=== PATIENT | female | born 1945 | race Caucasian/White ===

== ENCOUNTER 2019-12-19 13:58 | Observation (INO) | payer OTHER ==
[~2019-12-19] VITALS: Ht 170.2 cm; Wt 68.0 kg
[~2019-12-19 13:58] MED LIST: ASPI81EC97 PO; CAR30 PO; DULO60EC PO; INSU3SUS11 SC; INSU3SUS11 SUBQ; INV1I IV; LORA-476 PO; METF1000 PO; MIC5 PO; MIRABULK PO; PHEN-329 PO; PHEN1SUP7 RC; QUET25TA PO; SIMV40TA1 PO; [UNRECOGNIZED DRUG - CODE] PO; [UNRECOGNIZED DRUG - CODE] RC
[2019-12-19 14:30] VITALS: BP 114/43
--- NOTE | 2019-12-19 14:30 | NUR ---
74 y/o F biba from [facility] for gtube placement. Pt had GT removed 12/08/19 per family request d/t pt taking medications and meals orally. Pt no longer taking medications or meals orally. Requesting GT placement. A&O x1. Vital Signs Stable. HOB elevated, bed in lowest postion, bed rail up x2. Waiting for ERMD to evaluate pt.
--- NOTE | 2019-12-19 15:00 | NUR ---
Family at bedside. Pt on monitoring analyst. Vital Signs Stable. Will continue to monitor.
[2019-12-19 15:08] LABS: BASOPHILS % (AUTO) 0.5 % (0.0-2.0); EOSINOPHILS # (AUTO) 0.2 K/uL (0-0.4); EOSINOPHILS % (AUTO) 2.8 % (0.0-4.0); HEMATOCRIT 37.3 % (36-48); HEMOGLOBIN 11.6 g/dL (12.0-16.0); LYMPHOCYTES # (AUTO) 2.4 K/uL (2.5-16.5); LYMPHOCYTES % (AUTO) 30.8 % (20.5-51.1); MEAN CORPUSCULAR HEMOGLOBIN 27 pg (27-31); MEAN CORPUSCULAR HGB CONC 31 g/dL (33-37); MEAN CORPUSCULAR VOLUME 86.3 fL (80-94); MONOCYTES # (AUTO) 0.5 K/uL (0.8-1.0); NEUTROPHILS # (AUTO) 4.5 K/uL (1.8-7.7); NEUTROPHILS % (AUTO) 58.9 % (42.2-75.2); PLATELET COUNT (AUTO) 258 K/uL (140-450); RED BLOOD CELL COUNT(AUTO) 4.32 MIL/uL (4.20-5.40); RED CELL DISTRIBUTION WIDTH 15.6 % (11.6-13.7); WHITE BLOOD COUNT (AUTO) 7.7 K/uL (4.8-10.8)
[2019-12-19 15:21] LABS: ALBUMIN 3.1 g/dL (3.4-5.0); ANION GAP 15.5 (8-16); ASPARTATE AMINOTRANSFERASE 13 U/L (15-37); CARBON DIOXIDE 23.7 mmol/L (21-32); CHLORIDE 106 mmol/L (98-107); GLUCOSE 174 mg/dL (74-106); POTASSIUM 4.2 mmol/L (3.5-5.1); SODIUM SERUM 141 mmol/L (136-145); TOTAL BILIRUBIN 0.3 mg/dL (0.0-1.0); UREA NITROGEN, BLOOD 21 mg/dL (7-18)
--- NOTE | 2019-12-19 15:30 | NUR ---
Family updated on plan of care. All questions addressed.
[2019-12-19 15:35] LABS: PROTHROMBIN TIME 10.3 secs (10.8-13.4)
[2019-12-19] MEDS: DEXT 5% / NACL 0.45% 1,000 ML IV SCH (16:12)
[2019-12-19] MEDS ORDERED: ALBUTEROL 0.083% 2.5 MG/3 ML NEBU INH PRN (16:15)
[2019-12-19] MEDS ORDERED: ACETAMINOPHEN 325 MG TAB PO PRN (16:15)
[2019-12-19] MEDS ORDERED: ONDANSETRON 4 MG/2 ML VIAL IVP PRN (16:15)
--- NOTE | 2019-12-19 16:35 | NUR ---
Transfer of care and report given to JOSE Garcia
--- NOTE | 2019-12-19 16:35 | NUR ---
Patient will be admitted to [facility]. Admited to [facility]. Will go to room 122A. Belongings list completed. Report to JOSE Garcia.
--- NOTE | 2019-12-19 16:35 | NUR ---
RECEIVED PT FROM ER. PT IS COMING WITH CAREGIVER. PT IS BEDBOUND, AND PER CAREGIVER, IS CONFUSED BECAUSE SHE HAS A HX OF ALZHEIMER'S DEMENTIA. SKIN IS INTACT. ON ROOM AIR. IV SITE R HAND 24 G SALINE LOCK. PT'S PRIMARY LANGUAGE IS SLOVENIAN. SHELF FILLER IS LATRICIA, HER SON, . PT IS SEEN AND EVALUATED BY DR ALFRED. PT'S CAREGIVER DOES NOT KNOW IF/WHEN PT HAS HAD FLU OR PNA VACCINES, AND DOES NOT KNOW THE DATE OF HER LAST BM.
[2019-12-19 16:40] VITALS: BP 114/90
--- NOTE | 2019-12-19 17:21 | NUR ---
PT'S CAREGIVER INFORMED ME THAT PT IS DIABETIC. BG AT THIS TIME IS 172. DR ALFRED MADE AWARE THAT PT IS DIABETIC.
--- NOTE | 2019-12-19 17:22 | NUR ---
OBTAINED PHONE CONSENT FROM PT'S SON LATRICIA FOR G-TUBE PLACEMENT, VERIFIED WITH JOSE HUMPHREYS.
--- NOTE | 2019-12-19 17:54 | NUR ---
CONFIRMED WITH PT'S CAREGIVER THAT PT IS NOT ALLERGIC TO TYLENOL. PHARMACY MADE AWARE
--- NOTE | 2019-12-19 18:05 | NUR ---
PAGED ON-CALL MD DR. DELEON TO GET ORDERS FOR IV FLUIDS. PT CURRENTLY HAS D5 1/2 NS ORDERED, BUT THERE IS NO DRIP RATE. WILL ALSO ASK ABOUT ORDERING ACHS BG CHECKS AND INSULIN COVERAGE, SINCE PT HAS HX OF DM, AND PER CAREGIVER, RECEIVED INSULIN COVERAGE AT HER RESIDENCE. AWAITING CALL BACK FROM DR DELEON. Addendum: 12/19/19 at 1818 by Radha Mercado RN GOT CALL BACK FROM BERNADETTE RICHARD D5 1/2 NS 75 ML/HR, AND ACHS BG CHECKS WITH SLIDING SCALE INSULIN LISPRO
[2019-12-19] MEDS ORDERED: DEXTROSE 50% 50 ML SYR IVP PRN (18:15)
[2019-12-19] MEDS ORDERED: INSULIN LISPRO SLIDING SCALE 100 UNITS/ML VIAL SUBQ PRN (18:15)
--- NOTE | 2019-12-19 18:30 | NUR ---
IVF INFUSING PER MD ORDER. PT FELL ASLEEP, APPEARS TO BE COMFORTABLE IN BED.
--- NOTE | 2019-12-19 19:06 | NUR ---
RECEIVED A CALL FROM BERNADETTE KELLY TO DC THE ASPIRIN AND KEEP PT NPO FOR G-TUBE PLACEMENT TOMORROW MORNING.
--- NOTE | 2019-12-19 19:25 | NUR ---
ENDORSED PT TO SOFTWARE TOOLS BUILD ENGINEER NURSE IN STABLE CONDITION.
--- NOTE | 2019-12-19 19:30 | NUR ---
RECEIVED FROM AM RN IN BED SLEEPING. PER AM RN BEEN AWAKE ALL DAY LONG. NO RESTLESSNESS NOTED. WILL CONTINUE CARE FOR THE NIGHT FROM AM RN. NEEDS WILL BE ANTICIPATED AND WILL BE MET. TOTAL CARE RT HX. DEMENTIA AND ALZHEIMERS. WILL BE TURNED Q 2H.
--- NOTE | 2019-12-19 21:00 | NUR ---
PT. TURNED TO SIDES BT SENIOR SCRUM MASTER WITH PILLOW SUPPORT TO PRESSURE AREAS. NEEDS WILL BE ANTICIPATED AND WILL BE MET. TOTAL CARE. GARBLED WORDS AND UN ABLE TO UNDERSTAND RT SPEAKS BULGARIAN. WENT BACK TO SLEEP AFTER PM CARE.
[2019-12-19] MEDS: BLOOD GLUCOSE MONITORING 1 DEV DEV FS SCH (21:03)
[2019-12-19 21:07] VITALS: BP 169/70
[2019-12-19 21:10] VITALS: BP 167/77
[2019-12-19] MEDS: QUEtiapine FUMARATE 25 MG TAB PO SCH (21:13)
[2019-12-19] MEDS: DILTIAZEM 30 MG TAB PO SCH (21:13)
--- NOTE | 2019-12-19 21:30 | NUR ---
PT SEEN AND ASSESSED. PT IS IN NO APPARENT RESPIRATORY DISTRESS AT THIS TIME; HR 71, RR 18, SPO2 OF 99% ON ROOM AIR, AND A CLEAR BREATH SOUNDS. NO INDICATION FOR HHN PRN TX AT THIS TIME. WILL CONTINUE TO MONITOR PT.
[2019-12-19 23:44] VITALS: BP 147/57
--- NOTE | 2019-12-19 23:46 | NUR ---
PT, ATTENDED BY CNAS. TURNED TO OTHER SIDE WITH PILLOW SUPPORT TO PRESSURE AREAS. BED ALARM ON. NO RESTLESSNESS. IVF SITE INTACT AND NO INFILTRATION NOTED.
[2019-12-20] VITALS: BP 144/57
--- NOTE | 2019-12-20 03:15 | NUR ---
PT. SLEEPING AT THIS TIME. NEEDS ANTICIPATED AND WILL BE MET. TOTAL CARE RT GENERALIZED WEAKNESS. BED ALARM ON. BED BOUND PER BASELINE. NEW IVF SITE TO RIGHT FOREARM #22 . GOOD BLOOD RETURN.
[2019-12-20] MEDS: DILTIAZEM 30 MG TAB PO SCH (05:00)
[2019-12-20] MEDS: DEXT 5% / NACL 0.45% 1,000 ML IV SCH (05:06)
[2019-12-20] MEDS: BLOOD GLUCOSE MONITORING 1 DEV DEV FS SCH ×3 (05:09→17:21)
--- NOTE | 2019-12-20 05:56 | NUR ---
AM PERSONAL HYGIENE RENDERED BY CNAS. CHLORHEXIDINE WIPES DONE FOR PRE-OP . SEQUENTIALS BILATERALLY IN PLACE . NEEDS ANTICIPATED AND MET. ISOLATION PRECAUTION FOR HX. OF URINE ECOLI AND ESBL . SURGICAL CHECKLIST DONE. PT. WAKES UP WHEN MOVED OR TOUCHED. MUMBLES. TOTAL CARE RT GENERALIZED WEAKNESS. BEDBOUND MOBILITY BASELINE.
[2019-12-20] MEDS ORDERED: MIDAZOLAM 2 MG/2 ML VIAL ONE (07:02)
[2019-12-20] MEDS ORDERED: fentaNYL 0.05 MG/ML VIAL ONE (07:02)
[2019-12-20 07:04] LABS: BASOPHILS % (AUTO) 0.4 % (0.0-2.0); EOSINOPHILS # (AUTO) 0.2 K/uL (0-0.4); HEMOGLOBIN 11.2 g/dL (12.0-16.0); LYMPHOCYTES # (AUTO) 2.5 K/uL (2.5-16.5); LYMPHOCYTES % (AUTO) 30.4 % (20.5-51.1); MEAN CORPUSCULAR HEMOGLOBIN 27 pg (27-31); MEAN CORPUSCULAR HGB CONC 32 g/dL (33-37); MEAN CORPUSCULAR VOLUME 85.2 fL (80-94); MONOCYTES # (AUTO) 0.6 K/uL (0.8-1.0); NEUTROPHILS # (AUTO) 4.9 K/uL (1.8-7.7); NEUTROPHILS % (AUTO) 59.2 % (42.2-75.2); PLATELET COUNT (AUTO) 268 K/uL (140-450); RED BLOOD CELL COUNT(AUTO) 4.11 MIL/uL (4.20-5.40); RED CELL DISTRIBUTION WIDTH 15.4 % (11.6-13.7); WHITE BLOOD COUNT (AUTO) 8.4 K/uL (4.8-10.8)
--- NOTE | 2019-12-20 07:05 | NUR ---
RECEIVED REPORT FROM STARS ANALYTICAL LEAD NURSE AT BEDSIDE FOR CONTINUITY OF CARE. PATIENT SLEEPING COMFORTABLY IN BED, NO RESTLESSNESS OR SOB NOTED ON ROOM AIR. IV SITES INTACT, ASYMPTOMATIC, AND RIGHT HAND IV INFUSING IVF WELL, R FA IV SALINE LOCKED. PATIENT SCDS, UPDATED BOARD. PATIENT WILL BE GOING TO GTUBE PLACEMENT PROCEDURE AT 0730. SAFETY AND ISOLATION PRECAUTIONS IN PLACE, BED IN LOWEST POSITION WITH BED ALARM AND BRAKES ON, CALL LIGHT WITHIN REACH, WILL CONTINUE TO MONITOR PATIENT.
--- NOTE | 2019-12-20 07:20 | NUR ---
TELEPHONE CONSENT WITH PATIENT'S SON LATRICIA OBTAINED VIA TELEPHONE WITH RN WILFREDO WITNESS. OR CHECKLIST UPDATED.
--- NOTE | 2019-12-20 07:25 | NUR ---
PATIENT WHEELED OFF FLOOR TO GTUBE PLACEMENT PROCEDURE WITH 2 OR NURSES AT HER SIDE. WILL WAIT FOR HER RETURN.
[2019-12-20 07:36] LABS: ALBUMIN 3.2 g/dL (3.4-5.0); ANION GAP 16.1 (8-16); ASPARTATE AMINOTRANSFERASE 13 U/L (15-37); CARBON DIOXIDE 24.5 mmol/L (21-32); CHLORIDE 107 mmol/L (98-107); CREATININE 0.9 mg/dL (0.6-1.3); GLUCOSE 101 mg/dL (74-106); MAGNESIUM 1.7 mg/dL (1.8-2.4); PHOSPHORUS 3.2 mg/dL (2.5-4.9); POTASSIUM 3.6 mmol/L (3.5-5.1); SODIUM SERUM 144 mmol/L (136-145); TOTAL BILIRUBIN 0.4 mg/dL (0.0-1.0); UREA NITROGEN, BLOOD 18 mg/dL (7-18)
[2019-12-20 07:40] VITALS: BP 189/79
[2019-12-20] MEDS: fentaNYL 0.05 MG/ML VIAL IVP ONE ×2 (07:46→08:52)
[2019-12-20] MEDS: MIDAZOLAM 2 MG/2 ML VIAL IVP ONE ×2 (07:46→08:52)
[2019-12-20] MEDS ORDERED: ceFAZolin 1,000 MG VIAL ONE (07:56)
--- NOTE | 2019-12-20 08:20 | NUR ---
PATIENT WHEELED BACK ONTO FLOOR AFTER GTUBE PLACEMENT. BP 190/100, WILL CALL DR. ALFRED TO UPDATE HIM ON PATIENT'S STATUS AND TO RECEIVE ORDERS.
--- NOTE | 2019-12-20 08:38 | NUR ---
PATIENT HAS BEEN SCREENED AND CATEGORIZED HIGH NUTRITION RISK. PATIENT WILL BE SEEN WITHIN 1-2 DAYS OF ADMISSION. 12/20/19 - 12/21/19 CONNOR AMADO MBA, RD
[2019-12-20] MEDS ORDERED: DILTIAZEM 25 MG/5 ML VIAL IVP PRN (08:40)
--- NOTE | 2019-12-20 08:40 | NUR ---
PAGED DR. ALFRED. DR HALEY HOSPICE DIRECTOR, CALLED BACK, UPDATED HIM ABOUT PATIENT'S ELEVATED BP. NEW ORDER IN FOR PRN CARDIZEM 10MG Q2HR FOR SYSTOLIC BP >180. ORDER NOTED AND WILL BE CARRIED OUT.
[2019-12-20] MEDS ORDERED: SIMVASTATIN 40 MG TAB PO SCH (09:00)
[2019-12-20] MEDS ORDERED: DULoxetine 30 MG CAPDR PO SCH (09:00)
[2019-12-20] MEDS ORDERED: ECOTRIN 81 MG TABEC PO SCH (09:00)
--- NOTE | 2019-12-20 09:04 | NUR ---
PRN CARDIZEM GIVEN FOR ELEVATED BP PER DR. HALEY'S ORDERS. PATIENT TOLERATED IT. WILL CONTINUE TO MONITOR PATIENT AND ASSESS BP.
--- NOTE | 2019-12-20 09:52 | NUR ---
12/20/19 RD INITIAL ASSESSMENT COMPLETED PLEASE REFER TO NUTRITION ASSESSMENT UNDER CARE ACTIVITY FOR ESTIMATED NUTRITIONAL NEEDS. RD RECOMMENDATIONS: 1. RECOMMEND JEVITY 1.2@50MLS/HR; SUFFICIENT TO MEET 90% ESTIMATED ENERGY NEEDS AND 100% ESTIMATED PROTEIN NEEDS. 2. START TF @30MLS/HR AND ADVANCE, TOLERATED, BY 10MLS/HR Q8HRS TO REACH GOAL RATE OF 50MLS/HR. 3. F/U 2-3 DAYS; HIGH RISK CONNOR AMADO MBA, RD
--- NOTE | 2019-12-20 10:20 | NUR ---
PATIENT VOIDED. PATIENT CLEANED. PATIENT REPOSITIONED FOR COMFORT AND TO OFFLOAD PRESSURE AREAS. CALL LIGHT WITHIN REACH, WILL CONTINUE TO MONITOR PATIENT.
--- NOTE | 2019-12-20 10:35 | NUR ---
GTUBE AUSCULTATED FOR PLACEMENT, 0 ML OF RESIDUAL NOTED. TUBE FEEDING STARTED. PATIENT TOLERATING IT. FAMILY AT BEDSIDE. WILL CONTINUE TO MONITOR PATIENT.
--- NOTE | 2019-12-20 11:02 | NUR ---
Patient's son Tunde called. Updated him on patient's condition, he verbalized understanding. Tunde is aware of patient's possible discharge. Will continue to monitor patient and update family on patient's condition.
--- NOTE | 2019-12-20 11:50 | NUR ---
CHECKED PATIENT'S TUBE FEEDING, 45 ML OF RESIDUAL NOTED. PER DR. BREWER'S ORDERS, WILL RESUME TUBE FEEDING AT CURRENT RATE. PATIENT'S CAREGIVER BRODERICK AT BEDSIDE. WILL CONTINUE TO MONITOR PATIENT.
[2019-12-20 12:10] VITALS: BP 139/70
[2019-12-20] MEDS ORDERED: ACETAMINOPHEN 325 MG TAB GT PRN (12:55)
[2019-12-20] MEDS ORDERED: CRUSHER, PILL MC ONE (12:56)
[2019-12-20] MEDS: QUEtiapine FUMARATE 25 MG TAB PO SCH (12:58)
[2019-12-20] MEDS ORDERED: ATORVASTATIN 20 MG TAB GT SCH (13:00)
[2019-12-20] MEDS ORDERED: DILTIAZEM 30 MG TAB GT SCH (13:00)
--- NOTE | 2019-12-20 13:16 | NUR ---
ORDERED MEDICATIONS GIVEN VIA GTUBE, PATIENT TOLERATING IT WELL. PATIENT VOIDED, CLEANED AND REPOSITIONED FOR COMFORT AND TO OFFLOAD PRESSURE AREAS. CAREGIVER BRODERICK AT BEDSIDE. SAFETY AND ISOLATION PRECAUTION IN PLACE, CALL LIGHT WITHIN REACH, WILL CONTINUE TO MONITOR PATIENT.
--- NOTE | 2019-12-20 13:20 | NUR ---
PATIENT'S SON LATRICIA AT BEDSIDE, IN TO SEE PATIENT. UPDATED HIM ON PATIENT'S CONDITION AND STATUS AND POSSIBLE DISCHARGE TODAY. HE VERBALIZED UNDERSTANDING. EDUCATED HIM ABOUT ISOLATION PROTOCOL, HE VERBALIZED UNDERSTANDING. WILL CONTINUE TO MONITOR PATIENT.
--- NOTE | 2019-12-20 13:45 | NUR ---
Transportation: Received transport authorization from Sissy ([facility] [phone]) auth # [id number]. [facility] transport arranged with [facility] for 1800 pick-up.
--- NOTE | 2019-12-20 14:00 | NUR ---
@1000 HRS: CONTACTED [facility] (TEL#[phone]), SPOKE WITH CHARGE NURSE UNIQUE REGARDING PT'S DISCHARGE ORDER BACK TO THEIR FACILITY AFTER 6PM TONIGHT, PER UNIQUE, PT IS GOING TO ROOM 209-1. ARON-RN ASSIGNED MADE AWARE.
--- NOTE | 2019-12-20 14:41 | NUR ---
ORDERED MEDICATIONS GIVEN VIA GTUBE, PATIENT TOLERATING IT WELL. 10 ML OF RESIDUAL NOTED. CAREGIVER BRODERICK AT BEDSIDE. SAFETY AND ISOLATION PRECAUTION IN PLACE, CALL LIGHT WITHIN REACH, WILL CONTINUE TO MONITOR PATIENT.
[2019-12-20 16:00] VITALS: BP 159/67
--- NOTE | 2019-12-20 16:48 | NUR ---
PATIENT'S SON OLGA LIDIA IN TO SEE PATIENT. UPDATED HIM ON PLAN OF CARE AND IMPENDING DISCHARGE, HE VERBALIZED UNDERSTANDING. HE REQUEST TO BE CALLED ONCE PATIENT HAS BEEN TRANSFERRED. PHONE #: [phone].
--- NOTE | 2019-12-20 17:50 | NUR ---
REPORT GIVEN TO JOSE ALCOCER, AT [facility]. GTUBE CLAMPED, IV REMOVED, IV CANNULAS INTACT, MINIMAL BLEEDING NOTED. BLOOD SUGAR 222, COVERAGE GIVEN. PATIENT TOLERATED IT. ID BANDS CUT. [facility] HERE TO PICK PATIENT UP TO TRANSPORT HER TO [facility]. PATIENT UNABLE TO SIGN PAPERWORK. TRANSFER PAPERWORK GIVEN TO [facility] STAFF AND DISCHARGE/TRANSFER INFORMATION GIVEN TO PATIENT'S CAREGIVER.
--- NOTE | 2019-12-20 18:10 | NUR ---
PATIENT WHEELED OFF FLOOR WITH [facility]. PATIENT WILL BE GOING TO [facility], ROOM 209. PATIENT IN STABLE CONDITION. PATIENT'S CAREGIVER BRODERICK TOOK ALL OF PATIENT'S BELONGINGS WITH HER.
--- NOTE | 2019-12-20 18:15 | NUR ---
CALLED PATIENT'S SON BRET TO INFORM THEM ABOUT PATIENT'S TRANSFER, NO ANSWER. LEFT VOICEMAIL AND NUMBER FOR THEM TO CALL BACK.
[2019-12-20] MEDS ORDERED: QUEtiapine FUMARATE 25 MG TAB GT SCH (21:00)
[2019-12-21] MEDS ORDERED: ATORVASTATIN 20 MG TAB PO SCH (09:00)
[2019-12-21] MEDS ORDERED: ATORVASTATIN 20 MG TAB GT SCH (09:00)
== END 2019-12-20 18:15 ==
LOC: MED 13:58 → MTU 16:12 → INTOOBSV 16:12 → MTU 12-20 01:45
PROVIDERS: ADMIT Hospitalist; ATTEND Hospitalist
DX: R13.12 Dysphagia, oropharyngeal phase (principal); F03.90 Unspecified dementia, unspecified severity, without behavioral disturbance, psychotic disturbance, mood disturbance, and anxiety; E44.0 Moderate protein-calorie malnutrition; I48.91 Unspecified atrial fibrillation; E11.9 Type 2 diabetes mellitus without complications; E78.5 Hyperlipidemia, unspecified; Z79.4 Long term (current) use of insulin; Z79.899 Other long term (current) drug therapy; Z88.2 Allergy status to sulfonamides; Z88.5 Allergy status to narcotic agent; Z88.1 Allergy status to other antibiotic agents; Z88.8 Allergy status to other drugs, medicaments and biological substances
CPT/HCPCS: 36415; 43246; 71045; 80053; 82948; 83735; 84100; 85025; 85610; 87081; 93005; 94760; 96372; 96374; 99285; G0378; J0690; J1815; J2250; J3010; J3490; J7030; Q0092; J7060